=== PATIENT | female | born 1940 | race Caucasian/White ===

== ENCOUNTER 2019-04-28 19:25 | Emergency (ER) | payer MEDICARE, OTHER ==
[~2019-04-28] VITALS: Ht 160 cm; Wt 51.0 kg
[~2019-04-28 19:25] MED LIST: ALPR-624 PO; CHOL400C8 PO; CYAN50LO INJ; LEVO50TA8 PO; PANT-47 PO; PROBIOTICS PO; RIVA10TA PO; RYT225T PO
[2019-04-28 21:42] VITALS: BP 166/83
== END 2019-04-28 21:43 | disposition home or self-care (01) ==
LOC: ER 19:25
DX: S83.8X2A Sprain of other specified parts of left knee, initial encounter (principal); S00.03XA Contusion of scalp, initial encounter; S90.32XA Contusion of left foot, initial encounter; M25.462 Effusion, left knee; Z88.5 Allergy status to narcotic agent; Z88.6 Allergy status to analgesic agent; Z79.899 Other long term (current) drug therapy; W01.0XXA Fall on same level from slipping, tripping and stumbling without subsequent striking against object, initial encounter; Y93.89 Activity, other specified; Y92.89 Other specified places as the place of occurrence of the external cause; Y99.8 Other external cause status
CPT/HCPCS: 99284

== ENCOUNTER 2019-08-20 18:30 | Emergency (ER) | payer MEDICARE, OTHER ==
[~2019-08-20] VITALS: Ht 160 cm; Wt 52.0 kg
--- NOTE | 2019-08-20 18:55 | NUR ---
md khanna made aware of pt condition.
--- NOTE | 2019-08-20 19:07 | NUR ---
It was approved via the CNO that the family member can come back to bedside for this patient. Person given a mask and taken to the room. Evie the House Wrecker called González the CNO herself and summoned me.
[2019-08-20] MEDS ORDERED: proCHLORperazine 10 MG/2 ml inj IV ONE (19:20)
[2019-08-20] MEDS ORDERED: morphine 4 MG/ML inj SYRINge IV ONE (19:20)
[2019-08-20] MEDS ORDERED: morphine 2 MG/ML inj. syringe IV PRN (19:20)
[2019-08-20] MEDS ORDERED: OFLO5DRO3 EACHEYE (19:37)
[2019-08-20 20:10] LABS: BASOPHILS # (AUTO) 0.1 X10'3 (0-0.2); BASOPHILS % (AUTO) 1.2 % (0-1); EOSINOPHILS # (AUTO) 0.1 X10'3 (0-0.9); EOSINOPHILS % (AUTO) 2.3 % (0-6); HEMATOCRIT 33.1 % (35.0-45.0); LYMPHOCYTES # (AUTO) 1.3 X10'3 (1.1-4.8); LYMPHOCYTES % (AUTO) 27.5 % (21-51); MEAN CORPUSCULAR HEMOGLOBIN 30.7 PG (27.0-31.0); MEAN CORPUSCULAR HGB CONC 33.1 g/dL (33.0-36.5); MEAN CORPUSCULAR VOLUME 92.8 FL (78-98); MEAN PLATELET VOLUME 9.5 FL (7.4-10.4); MONOCYTES # (AUTO) 0.7 X10'3 (0-0.9); MONOCYTES % (AUTO) 13.9 % (2-12); NEUTROPHILS # (AUTO) 2.6 X10'3 (1.8-7.7); NEUTROPHILS % (AUTO) 55.1 % (42-75); PLATELET COUNT 212 X10'3 (140-440); RED BLOOD COUNT 3.57 X10'6 (4.20-5.60); RED CELL DISTRIBUTION WIDTH 14.9 % (11.5-14.5); WHITE BLOOD COUNT 4.8 X10'3 (4.5-11.0)
[2019-08-20 20:23] LABS: ALANINE AMINOTRANSFERASE 15 U/L (12-78); ALBUMIN 3.6 G/DL (3.4-5.0); ALBUMIN/GLOBULIN RATIO 1.1 (1.1-1.5); ALKALINE PHOSPHATASE 118 IU/L (46-116); ANION GAP 4 (8-16); ASPARTATE AMINO TRANSFERASE 22 U/L (10-37); BILIRUBIN,TOTAL 0.2 MG/DL (0.1-1.0); BLOOD UREA NITROGEN 20 MG/DL (7-18); BUN/CREATININE RATIO 17.1 (6.6-38.0); CALCIUM 8.3 MG/DL (8.5-10.1); CHLORIDE 102 MMOL/L (99-107); CREATININE 1.17 MG/DL (0.40-0.90); GLUCOSE 90 MG/DL (70-104); POTASSIUM 4.6 MMOL/L (3.5-5.1); SODIUM 136 MMOL/L (135-145); TOTAL CARBON DIOXIDE 30.4 MMOL/L (24-32); eGFR 45 ML/MIN
[2019-08-20] MEDS ORDERED: cloNIDine 0.1 mg tablet PO ONE (22:05)
[2019-08-20] MEDS ORDERED: gabapentin 100mg capsule PO ONE (22:40)
[2019-08-20] MEDS ORDERED: GABA-530 PO (22:46)
[2019-08-21 00:19] VITALS: BP 167/84
== END 2019-08-21 00:20 | disposition home or self-care (01) ==
LOC: ER 18:30
DX: R51 Headache (principal); I10 Essential (primary) hypertension; I48.91 Unspecified atrial fibrillation; Z86.73 Personal history of transient ischemic attack (TIA), and cerebral infarction without residual deficits; Z79.899 Other long term (current) drug therapy; Z88.8 Allergy status to other drugs, medicaments and biological substances; Z79.01 Long term (current) use of anticoagulants
CPT/HCPCS: 36415; 70450; 80053; 85025; 85610; 93005; 96374; 96375; 96376; 99285; J0780; J2270

== ENCOUNTER 2020-03-05 19:00 | Emergency (ER) | payer MEDICARE, OTHER ==
[~2020-03-05] VITALS: Ht 160 cm; Wt 48.2 kg
[~2020-03-05 19:00] MED LIST changes: -ALPR-624 PO; -CHOL400C8 PO; -CYAN50LO INJ; +GABA-530 PO; +OFLO5DRO3 EACHEYE; -PROBIOTICS PO
[2020-03-05] MEDS ORDERED: iohexol 300mg/ml 100ml inj. ONE (19:19)
[2020-03-05 19:55] LABS: BASOPHILS % (AUTO) 0.2 % (0-1); EOSINOPHILS % (AUTO) 0 % (0-6); HEMATOCRIT 33.3 % (35.0-45.0); HEMOGLOBIN 11.1 g/dl (12.0-16.0); LYMPHOCYTES # (AUTO) 0.7 X10'3 (1.1-4.8); LYMPHOCYTES % (AUTO) 7.1 % (21-51); MEAN CORPUSCULAR HEMOGLOBIN 30.6 PG (27.0-31.0); MEAN CORPUSCULAR HGB CONC 33.2 g/dL (33.0-36.5); MEAN CORPUSCULAR VOLUME 92.4 FL (78-98); MEAN PLATELET VOLUME 8.2 FL (7.4-10.4); MONOCYTES # (AUTO) 0.6 X10'3 (0-0.9); MONOCYTES % (AUTO) 6.4 % (2-12); NEUTROPHILS # (AUTO) 8.1 X10'3 (1.8-7.7); NEUTROPHILS % (AUTO) 86.3 % (42-75); PLATELET COUNT 287 X10'3 (140-440); RED BLOOD COUNT 3.61 X10'6 (4.20-5.60); RED CELL DISTRIBUTION WIDTH 15.7 % (11.5-14.5); WHITE BLOOD COUNT 9.4 X10'3 (4.5-11.0)
[2020-03-05 20:07] LABS: PARTIAL THROMBOPLASTIN TIME 25 SECONDS (22-32)
[2020-03-05 20:15] LABS: ALANINE AMINOTRANSFERASE 22 U/L (12-78); ALBUMIN 3.3 G/DL (3.4-5.0); ALKALINE PHOSPHATASE 90 IU/L (46-116); ANION GAP 6 (8-16); ASPARTATE AMINO TRANSFERASE 24 U/L (10-37); BILIRUBIN,TOTAL 0.4 MG/DL (0.1-1.0); BLOOD UREA NITROGEN 16 MG/DL (7-18); BUN/CREATININE RATIO 16.8 (6.6-38.0); CALCIUM 8.3 MG/DL (8.5-10.1); CHLORIDE 97 MMOL/L (99-107); CREATININE 0.95 MG/DL (0.40-0.90); GLUCOSE 102 MG/DL (70-104); LIPASE 125 U/L (73-393); POTASSIUM 4.1 MMOL/L (3.5-5.1); SODIUM 134 MMOL/L (135-145); TOTAL PROTEIN 6.6 G/DL (6.4-8.2); TROPONIN I < 0.04 NG/ML (0.0-0.05); eGFR 56 ML/MIN
[2020-03-05 21:24] VITALS: BP 185/94
== END 2020-03-05 21:28 | disposition home or self-care (01) ==
LOC: ER 19:01
DX: S20.212A Contusion of left front wall of thorax, initial encounter (principal); N18.9 Chronic kidney disease, unspecified; I48.91 Unspecified atrial fibrillation; E07.9 Disorder of thyroid, unspecified; Z86.73 Personal history of transient ischemic attack (TIA), and cerebral infarction without residual deficits; Z88.2 Allergy status to sulfonamides; Z88.8 Allergy status to other drugs, medicaments and biological substances; Z79.2 Long term (current) use of antibiotics; Z79.899 Other long term (current) drug therapy; W01.0XXA Fall on same level from slipping, tripping and stumbling without subsequent striking against object, initial encounter; Z91.81 History of falling; Y93.89 Activity, other specified; Y92.098 Other place in other non-institutional residence as the place of occurrence of the external cause; Y99.8 Other external cause status
CPT/HCPCS: 36415; 71260; 74177; 80053; 83690; 84484; 85025; 85610; 85730; 86885; 86900; 86901; 99285; Q9967; 93005

== ENCOUNTER 2020-04-02 23:28 | Emergency (ER) | payer MEDICARE, OTHER ==
[~2020-04-02] VITALS: Ht 160 cm; Wt 51.4 kg
[2020-04-02] MEDS ORDERED: hydrALAZINE 20mg/ml inj. IV ONE (23:35)
[2020-04-02 23:57] LABS: BASOPHILS % (AUTO) 0.3 % (0-1); EOSINOPHILS % (AUTO) 0.3 % (0-6); HEMATOCRIT 31.6 % (35.0-45.0); HEMOGLOBIN 10.7 g/dl (12.0-16.0); LYMPHOCYTES # (AUTO) 1.2 X10'3 (1.1-4.8); LYMPHOCYTES % (AUTO) 14.9 % (21-51); MEAN CORPUSCULAR HEMOGLOBIN 31.3 PG (27.0-31.0); MEAN CORPUSCULAR HGB CONC 33.8 g/dL (33.0-36.5); MEAN CORPUSCULAR VOLUME 92.6 FL (78-98); MONOCYTES # (AUTO) 0.7 X10'3 (0-0.9); MONOCYTES % (AUTO) 8.9 % (2-12); NEUTROPHILS % (AUTO) 75.6 % (42-75); PLATELET COUNT 269 X10'3 (140-440); RED BLOOD COUNT 3.41 X10'6 (4.20-5.60); RED CELL DISTRIBUTION WIDTH 14.9 % (11.5-14.5)
[2020-04-03 00:15] LABS: ALANINE AMINOTRANSFERASE 22 U/L (12-78); ALBUMIN 3.3 G/DL (3.4-5.0); ALKALINE PHOSPHATASE 89 IU/L (46-116); ANION GAP 5 (8-16); ASPARTATE AMINO TRANSFERASE 22 U/L (10-37); BILIRUBIN,TOTAL 0.3 MG/DL (0.1-1.0); BLOOD UREA NITROGEN 12 MG/DL (7-18); BUN/CREATININE RATIO 12.2 (6.6-38.0); CALCIUM 8.2 MG/DL (8.5-10.1); CHLORIDE 94 MMOL/L (99-107); CREATININE 0.98 MG/DL (0.40-0.90); GLUCOSE 111 MG/DL (70-104); POTASSIUM 3.7 MMOL/L (3.5-5.1); SODIUM 128 MMOL/L (135-145); TOTAL CARBON DIOXIDE 29.4 MMOL/L (24-32); TOTAL PROTEIN 6.5 G/DL (6.4-8.2); eGFR 54 ML/MIN
[2020-04-03 00:20] LABS: MAGNESIUM 1.8 MG/DL (1.5-2.4)
[2020-04-03] MEDS ORDERED: normal saline 1000ML IV soln IVB ONE (00:50)
[2020-04-03 01:58] VITALS: BP 169/90
== END 2020-04-03 02:00 | disposition home or self-care (01) ==
LOC: ER 23:29
DX: I16.0 Hypertensive urgency (principal); R42 Dizziness and giddiness; E87.1 Hypo-osmolality and hyponatremia; D50.0 Iron deficiency anemia secondary to blood loss (chronic); R11.0 Nausea; R51.9 Headache, unspecified; N18.9 Chronic kidney disease, unspecified; I48.91 Unspecified atrial fibrillation; Z86.73 Personal history of transient ischemic attack (TIA), and cerebral infarction without residual deficits; Z88.1 Allergy status to other antibiotic agents; Z88.8 Allergy status to other drugs, medicaments and biological substances; Z79.2 Long term (current) use of antibiotics; Z79.899 Other long term (current) drug therapy
CPT/HCPCS: 36415; 70450; 71045; 80053; 83735; 83880; 84484; 85025; 93005; 96374; 99285; J0360; J7030

== ENCOUNTER 2020-05-28 20:09 | Emergency (ER) | payer MEDICARE, OTHER ==
[~2020-05-28] VITALS: Ht 170.2 cm; Wt 56.4 kg
[2020-05-28] MEDS ORDERED: GENT5DRO RIGHT EAR (20:47)
[2020-05-28 21:22] VITALS: BP 143/72
== END 2020-05-28 21:24 | disposition home or self-care (01) ==
LOC: ER 20:10
DX: H60.501 Unspecified acute noninfective otitis externa, right ear (principal); I48.91 Unspecified atrial fibrillation; E07.9 Disorder of thyroid, unspecified; M79.7 Fibromyalgia; Z86.73 Personal history of transient ischemic attack (TIA), and cerebral infarction without residual deficits; Z87.442 Personal history of urinary calculi; Z91.018 Allergy to other foods; Z88.1 Allergy status to other antibiotic agents; Z88.8 Allergy status to other drugs, medicaments and biological substances; Z79.899 Other long term (current) drug therapy
CPT/HCPCS: 99283

== ENCOUNTER 2021-05-24 07:55 | Day surgery (SDC) | payer MEDICARE, OTHER ==
[2021-05-24] VITALS (12 sets, daily range): BP systolic 162–204; BP diastolic 70–110
[~2021-05-24 07:55] MED LIST changes: +GENT5DRO RIGHT EAR
[2021-05-24] MEDS ORDERED: LIDOcaine Viscous 15ml cup ONE (08:28)
[2021-05-24] MEDS ORDERED: fentaNYL/PF 50MCG/1 ML 2ML syringe ONE (08:28)
[2021-05-24] MEDS ORDERED: MIDAZolam 1 MG/ML 5ML VIAL ONE (08:28)
[2021-05-24] MEDS ORDERED: ENZY1CAP5 (09:09)
[2021-05-24] MEDS ORDERED: LACT1CAP73 PO (09:09)
[2021-05-24] MEDS ORDERED: vit d3 PO (09:09)
[2021-05-24] MEDS ORDERED: naloxone 0.4 mg/ml inj ONE (14:14)
== END 2021-05-24 11:35 | disposition home or self-care (01) ==
LOC: GI LAB 07:55
PROVIDERS: ATTEND Internal Medicine Gastroenterology
DX: R13.14 Dysphagia, pharyngoesophageal phase (principal); K22.2 Esophageal obstruction; I48.91 Unspecified atrial fibrillation; Z79.01 Long term (current) use of anticoagulants
CPT/HCPCS: 43248; C1769; G0500; J0585; J2250; J2310; J3010; J7040; Z7512; 99152; A4620

== ENCOUNTER 2022-02-21 20:03 | Emergency (ER) | payer MEDICARE, OTHER ==
[~2022-02-21] VITALS: Ht 160 cm; Wt 51.8 kg
[~2022-02-21 20:03] MED LIST changes: -GABA-530 PO; -GENT5DRO RIGHT EAR; -OFLO5DRO3 EACHEYE
[2022-02-21 20:07] VITALS: BP 184/84
== END 2022-02-21 23:45 | disposition home or self-care (01) ==
LOC: ER 20:04
DX: S09.90XA Unspecified injury of head, initial encounter (principal); S00.03XA Contusion of scalp, initial encounter; I48.91 Unspecified atrial fibrillation; Z86.73 Personal history of transient ischemic attack (TIA), and cerebral infarction without residual deficits; Z87.440 Personal history of urinary (tract) infections; Z85.9 Personal history of malignant neoplasm, unspecified; Z88.8 Allergy status to other drugs, medicaments and biological substances; Z88.1 Allergy status to other antibiotic agents; Z79.899 Other long term (current) drug therapy; W19.XXXA Unspecified fall, initial encounter; Y93.89 Activity, other specified; Y92.89 Other specified places as the place of occurrence of the external cause; Y99.8 Other external cause status
CPT/HCPCS: 70450; 99284

== ENCOUNTER 2022-03-21 20:17 | Emergency (ER) | payer MEDICARE, OTHER ==
[~2022-03-21] VITALS: Ht 160 cm; Wt 52.8 kg
[2022-03-21 20:20] VITALS: BP 204/104
== END 2022-03-22 00:36 | disposition home or self-care (01) ==
LOC: ER 20:17
DX: S60.221A Contusion of right hand, initial encounter (principal); R22.31 Localized swelling, mass and lump, right upper limb; Z88.1 Allergy status to other antibiotic agents; Z88.5 Allergy status to narcotic agent; Z88.8 Allergy status to other drugs, medicaments and biological substances; Z91.09 Other allergy status, other than to drugs and biological substances; X58.XXXA Exposure to other specified factors, initial encounter; Y93.89 Activity, other specified; Y92.89 Other specified places as the place of occurrence of the external cause; Y99.8 Other external cause status
CPT/HCPCS: 29125; 73130; 99283

== ENCOUNTER 2022-04-16 17:54 | Inpatient (IN) | payer MEDICARE, OTHER ==
[~2022-04-16] VITALS: Ht 160 cm; Wt 56.4 kg
[2022-04-16] MEDS ORDERED: aspirin 81mg tab.chew PO ONE (18:40)
[2022-04-16 19:06] LABS: BASOPHILS # (AUTO) 0.1 X10'3 (0-0.2); BASOPHILS % (AUTO) 1.5 % (0-1); EOSINOPHILS # (AUTO) 0.1 X10'3 (0-0.9); EOSINOPHILS % (AUTO) 0.8 % (0-6); HEMOGLOBIN 10.6 g/dl (12.0-16.0); LYMPHOCYTES # (AUTO) 1.2 X10'3 (1.1-4.8); LYMPHOCYTES % (AUTO) 13.4 % (21-51); MEAN CORPUSCULAR HEMOGLOBIN 33.6 PG (27.0-31.0); MEAN CORPUSCULAR HGB CONC 33.1 g/dL (33.0-36.5); MEAN CORPUSCULAR VOLUME 101.4 FL (78-98); MEAN PLATELET VOLUME 7.9 FL (7.4-10.4); MONOCYTES # (AUTO) 0.9 X10'3 (0-0.9); MONOCYTES % (AUTO) 9.6 % (2-12); NEUTROPHILS # (AUTO) 6.7 X10'3 (1.8-7.7); NEUTROPHILS % (AUTO) 74.7 % (42-75); PLATELET COUNT 348 X10'3 (140-440); RED BLOOD COUNT 3.15 X10'6 (4.20-5.60); RED CELL DISTRIBUTION WIDTH 13.8 % (11.5-14.5)
[2022-04-16 19:21] LABS: ALANINE AMINOTRANSFERASE 29 U/L (12-78); ALBUMIN 2.6 G/DL (3.4-5.0); ALBUMIN/GLOBULIN RATIO 0.8 (1.1-1.5); ALKALINE PHOSPHATASE 93 IU/L (46-116); ANION GAP 7 (8-16); ASPARTATE AMINO TRANSFERASE 24 U/L (10-37); BILIRUBIN,TOTAL 0.4 MG/DL (0.1-1.0); BLOOD UREA NITROGEN 16 MG/DL (7-18); BUN/CREATININE RATIO 15.2 (6.6-38.0); CALCIUM 8.4 MG/DL (8.5-10.1); CHLORIDE 98 MMOL/L (99-107); CREATININE 1.05 MG/DL (0.40-0.90); GLUCOSE 109 MG/DL (70-104); POTASSIUM 3.8 MMOL/L (3.5-5.1); SODIUM 136 MMOL/L (135-145); TOTAL CARBON DIOXIDE 31.5 MMOL/L (24-32); eGFR 50 ML/MIN
[2022-04-16] MEDS ORDERED: RIVA10TA PO (20:16)
[2022-04-16] MEDS ORDERED: PANT-47 PO (20:16)
[2022-04-16] MEDS ORDERED: SYN0.088T PO (20:16)
[2022-04-16] MEDS ORDERED: PROP225C9 PO (20:16)
[2022-04-16] MEDS ORDERED: temazepam 15mg capsule PO PRN (21:00)
[2022-04-16] MEDS ORDERED: iohexol 350MG/ML 100ml bottle IV ONE (21:11)
[2022-04-16] MEDS ORDERED: potassium Cl 20 mEq SR tablet PO PRN ×2 (22:10)
[2022-04-16] MEDS ORDERED: magnesium Cl slow-release 64mg tablet PO PRN (22:10)
[2022-04-16] MEDS ORDERED: ondansetron/PF 4mg/2ml inj IV PRN (22:10)
[2022-04-16] MEDS ORDERED: potassium Cl 40MEQ/1/2NS 520ml 520 ML IV PRN (22:10)
[2022-04-16] MEDS ORDERED: acetaminophen 325mg tablet PO PRN ×2 (22:10)
[2022-04-16] MEDS ORDERED: magnesium 4gm in 100ml NS 100 ML IV PRN (22:10)
[2022-04-16] MEDS ORDERED: regadenoson 0.4mg/5ml syringe IV PRN (22:15)
[2022-04-16] MEDS ORDERED: metoprolol tartrate 1mg/ml inj IV PRN (22:15)
[2022-04-16] MEDS ORDERED: aminophylline 250mg/10ml inj. IV PRN (22:15)
[2022-04-16] MEDS ORDERED: nitroGLYCERIN 0.4mg SUBLingual tab SL PRN (22:15)
[2022-04-16] MEDS ORDERED: SPIR25TA5 PO (22:49)
[2022-04-17] VITALS (10 sets, daily range): BP systolic 129–192; BP diastolic 58–87
[2022-04-17] MEDS ORDERED: RIVA20TA PO (00:32)
[2022-04-17 04:19] LABS: BASOPHILS % (AUTO) 0.6 % (0-1); EOSINOPHILS # (AUTO) 0.1 X10'3 (0-0.9); EOSINOPHILS % (AUTO) 1.1 % (0-6); HEMATOCRIT 32.7 % (35.0-45.0); LYMPHOCYTES # (AUTO) 1.4 X10'3 (1.1-4.8); LYMPHOCYTES % (AUTO) 20.4 % (21-51); MEAN CORPUSCULAR HEMOGLOBIN 34.2 PG (27.0-31.0); MEAN CORPUSCULAR HGB CONC 33.5 g/dL (33.0-36.5); MEAN CORPUSCULAR VOLUME 102.1 FL (78-98); MEAN PLATELET VOLUME 7.8 FL (7.4-10.4); MONOCYTES # (AUTO) 0.8 X10'3 (0-0.9); MONOCYTES % (AUTO) 11.1 % (2-12); NEUTROPHILS # (AUTO) 4.5 X10'3 (1.8-7.7); NEUTROPHILS % (AUTO) 66.8 % (42-75); PLATELET COUNT 327 X10'3 (140-440); RED BLOOD COUNT 3.21 X10'6 (4.20-5.60); RED CELL DISTRIBUTION WIDTH 13.8 % (11.5-14.5); WHITE BLOOD COUNT 6.7 X10'3 (4.5-11.0)
[2022-04-17 04:35] LABS: ALANINE AMINOTRANSFERASE 23 U/L (12-78); ALBUMIN 2.6 G/DL (3.4-5.0); ALBUMIN/GLOBULIN RATIO 0.7 (1.1-1.5); ALKALINE PHOSPHATASE 96 IU/L (46-116); ANION GAP 6 (8-16); ASPARTATE AMINO TRANSFERASE 26 U/L (10-37); BILIRUBIN,TOTAL 0.4 MG/DL (0.1-1.0); BLOOD UREA NITROGEN 13 MG/DL (7-18); BUN/CREATININE RATIO 16.3 (6.6-38.0); CALCIUM 8.6 MG/DL (8.5-10.1); CHLORIDE 100 MMOL/L (99-107); GLUCOSE 103 MG/DL (70-104); POTASSIUM 3.9 MMOL/L (3.5-5.1); SODIUM 137 MMOL/L (135-145); TOTAL CARBON DIOXIDE 31.1 MMOL/L (24-32); TOTAL PROTEIN 6.1 G/DL (6.4-8.2); eGFR 69 ML/MIN
[2022-04-17] MEDS ORDERED: FURO20TA4 PO (06:58)
--- NOTE | 2022-04-17 07:04 | NUR ---
Patient was instructed that she is NPO for stress test today. Pt verbalized understanding of instruction given to her.
--- NOTE | 2022-04-17 07:11 | NUR ---
Paged Dr. Gardner: EMIGDIO Corbin RN RE: Adrienne Doe, Pt has med recon reviewed this am. She is usually on Xarelto at night. She has heparin SQ due this am, do you want us to give it this am and resume Xareto she takes at home?
--- NOTE | 2022-04-17 07:50 | NUR ---
Pt was hesitant to receive IV Rocephin this am. She reported that she has so many allergies and that she is concern about any medication to receive. I asked her if she ever had Ceftriaxone (Rocephin) and she states "I don't know if I ever had it!" Holding Rocephin IV for now until she allows me to administer it
[2022-04-17] MEDS ORDERED: CefTRIAXone 2gm/D5W 50ml BAG 50 ML IV SCH (08:00)
[2022-04-17] MEDS ORDERED: heparin, porcine 5000 units/ml vial SQ SCH (08:00)
--- NOTE | 2022-04-17 08:10 | NUR ---
SPOKE WITH DR. SILVA REPORTING PT REFUSING ABX AND REQUESTING TO SPEAK WITH HOSPITALIST. RECEIVED VO TO START PT ON HOME MED XARELTO 20MG HS, LAST DOSE TAKEN WAS 04/15/22 AND PT IS TO START NOW PER DR. SILVA. VO TO DC HEPARIN SQ ORDERS
[2022-04-17] MEDS ORDERED: pantoprazole 40mg Tablet.DR PO SCH (08:48)
--- NOTE | 2022-04-17 09:13 | NUR ---
CALLED RX FOR XARELTO, PT WILL NOT RECEIVE MED TILL EVENING MEAL PHARMACIST REPORTS MANUFACTURE RECOMMENDATION. CALLED HOSPITALIST DR. SILVA, AWAITING RETURN CALL TO REPORT.
--- NOTE | 2022-04-17 09:24 | NUR ---
Pt just left her room accompanied by claus Mccartney en route to Stress Test
[2022-04-17 10:29] LABS: CHOL/HDL RATIO 2.4 (0.00-4.99); CHOLESTEROL 200 MG/DL (0-200); HDL CHOLESTEROL 83 MG/DL (35-60); LDL CHOLESTEROL 110 MG/DL (50-100); TRIGLYCERIDES 42 MG/DL (20-135)
[2022-04-17 10:52] LABS: HEMOGLOBIN A1C 5.6 % (4.5-6.2)
[2022-04-17] MEDS ORDERED: ALBU6.7H14 INH ×2 (12:30)
[2022-04-17] MEDS ORDERED: PROPAFENONE HCL 225 MG PO SCH (13:00)
[2022-04-17] MEDS ORDERED: rivaroxaban 20mg tablet PO SCH (18:00)
[2022-04-18] MEDS ORDERED: levoTHYROXINE 25mcg tablet PO SCH (07:30)
[2022-04-25] MEDS ORDERED: piperacillin/tazo 4.5gm/100ml 100 ML IV SCH (16:00)
== END 2022-04-17 15:00 | disposition home or self-care (01) | DRG 392 ==
LOC: ER 17:54 → ED HOLD 22:13
PROVIDERS: ADMIT Internal Medicine; ATTEND Family Medicine
PROC: B32T1ZZ Computerized Tomography (CT Scan) of Left Pulmonary Artery using Low Osmolar Contrast (ICD-10-PCS; 2022-04-16)
PROC: B3201ZZ Computerized Tomography (CT Scan) of Thoracic Aorta using Low Osmolar Contrast (ICD-10-PCS; 2022-04-16)
PROC: B32S1ZZ Computerized Tomography (CT Scan) of Right Pulmonary Artery using Low Osmolar Contrast (ICD-10-PCS; 2022-04-16)
PROC: 4A02XM4 Measurement of Cardiac Total Activity, External Approach (ICD-10-PCS; principal; 2022-04-17)
PROC: 3E033HZ Introduction of Radioactive Substance into Peripheral Vein, Percutaneous Approach (ICD-10-PCS; 2022-04-17)
DX: K21.9 Gastro-esophageal reflux disease without esophagitis (principal); E03.9 Hypothyroidism, unspecified; I27.20 Pulmonary hypertension, unspecified; Z20.822 Contact with and (suspected) exposure to COVID-19; I48.0 Paroxysmal atrial fibrillation; I10 Essential (primary) hypertension; D33.3 Benign neoplasm of cranial nerves; R91.8 Other nonspecific abnormal finding of lung field; M79.7 Fibromyalgia; Z79.01 Long term (current) use of anticoagulants; Z79.52 Long term (current) use of systemic steroids; Z86.011 Personal history of benign neoplasm of the brain; Z86.73 Personal history of transient ischemic attack (TIA), and cerebral infarction without residual deficits; Z92.3 Personal history of irradiation; Z88.8 Allergy status to other drugs, medicaments and biological substances; Z79.890 Hormone replacement therapy
CPT/HCPCS: 36415; 71045; 71275; 78452; 80053; 80061; 83036; 83605; 83735; 83880; 84145; 84443; 84484; 85025; 87040; 87081; 87502; 87503; 87635; 93005; 93017; 93306; 99285; A9500; G0378; J2785; J3490; Q9967

== ENCOUNTER 2022-04-25 06:24 | Inpatient (IN) | payer MEDICARE, OTHER ==
[~2022-04-25] VITALS: Ht 160 cm; Wt 56.0 kg
[~2022-04-25 06:24] MED LIST changes: +ALBU6.7H14 INH; +FURO20TA4 PO; +PROP225C9 PO; -RIVA10TA PO; +RIVA20TA PO; -RYT225T PO
[2022-04-25 06:59] LABS: BASOPHILS # (AUTO) 0.1 X10'3 (0-0.2); BASOPHILS % (AUTO) 0.8 % (0-1); EOSINOPHILS % (AUTO) 0.5 % (0-6); HEMATOCRIT 31.9 % (35.0-45.0); HEMOGLOBIN 10.7 g/dl (12.0-16.0); LYMPHOCYTES # (AUTO) 1.1 X10'3 (1.1-4.8); LYMPHOCYTES % (AUTO) 15.1 % (21-51); MEAN CORPUSCULAR HEMOGLOBIN 33.6 PG (27.0-31.0); MEAN CORPUSCULAR HGB CONC 33.6 g/dL (33.0-36.5); MEAN CORPUSCULAR VOLUME 100.1 FL (78-98); MONOCYTES # (AUTO) 0.8 X10'3 (0-0.9); MONOCYTES % (AUTO) 10.4 % (2-12); NEUTROPHILS # (AUTO) 5.5 X10'3 (1.8-7.7); NEUTROPHILS % (AUTO) 73.2 % (42-75); PLATELET COUNT 367 X10'3 (140-440); RED BLOOD COUNT 3.19 X10'6 (4.20-5.60); RED CELL DISTRIBUTION WIDTH 14.1 % (11.5-14.5); WHITE BLOOD COUNT 7.5 X10'3 (4.5-11.0)
[2022-04-25] MEDS ORDERED: ondansetron/PF 4mg/2ml inj IV ONE (07:05)
[2022-04-25 07:38] LABS: CLARITY,URINE CLEAR (Clear); COLOR,URINE STRAW (Yellow); GLUCOSE, URINE NEGATIVE (Neg); KETONES,URINE NEGATIVE (Neg); LEUKOCYTE ESTERASE ,URINE NEGATIVE (Neg); NITRITES, URINE POSITIVE (Neg); OCCULT BLOOD,URINE NEGATIVE (Neg); PROTEIN,URINE NEGATIVE (Neg); UROBILINOGEN,URINE 0.2 E.U/dL (0.2-1.0)
[2022-04-25 07:43] LABS: UA COLLECTION TYPE STRAIGHT CATH
[2022-04-25 07:50] LABS: BACTERIA,URINE 4+ /HPF (Neg); MUCUS STRANDS NONE SEEN /LPF (Neg); SQUAMOUS EPITHELIAL CELL,UR FEW /LPF (FEW)
[2022-04-25 07:51] LABS: RBC,URINE 0-2 /HPF (0-2); RENAL CELLS, URINE FEW /HPF; WBC,URINE 0-4 /HPF (0-4)
[2022-04-25 08:36] LABS: ALANINE AMINOTRANSFERASE 21 U/L (12-78); ALBUMIN 2.9 G/DL (3.4-5.0); ALBUMIN/GLOBULIN RATIO 0.8 (1.1-1.5); ALKALINE PHOSPHATASE 89 IU/L (46-116); ANION GAP 9 (8-16); ASPARTATE AMINO TRANSFERASE 23 U/L (10-37); BILIRUBIN,TOTAL 0.2 MG/DL (0.1-1.0); BLOOD UREA NITROGEN 18 MG/DL (7-18); CALCIUM 8.4 MG/DL (8.5-10.1); CHLORIDE 99 MMOL/L (99-107); CREATININE 1.06 MG/DL (0.40-0.90); GLUCOSE 109 MG/DL (70-104); POTASSIUM 3.4 MMOL/L (3.5-5.1); SODIUM 138 MMOL/L (135-145); TOTAL CARBON DIOXIDE 29.6 MMOL/L (24-32); TOTAL PROTEIN 6.6 G/DL (6.4-8.2); eGFR 50 ML/MIN
[2022-04-25 08:43] LABS: LIPASE 221 U/L (73-393); MAGNESIUM 1.6 MG/DL (1.5-2.4)
[2022-04-25] MEDS ORDERED: acetaminophen 325mg tablet PO STA (10:06)
[2022-04-25] MEDS ORDERED: CefTRIAXone 2gm/D5W 50ml BAG 50 ML IV ONE (10:10)
[2022-04-25] MEDS ORDERED: normal saline 1000ML IV soln IV ONE (10:10)
[2022-04-25] MEDS ORDERED: ALPR1TAB2 PO (10:45)
[2022-04-25] MEDS ORDERED: DEXA1TAB PO (10:45)
[2022-04-25] MEDS ORDERED: FURO-150 PO (10:46)
--- NOTE | 2022-04-25 10:47 | NUR ---
DR. ROTHMAN AT BEDSIDE.
[2022-04-25] MEDS ORDERED: potassium Cl 20 mEq SR tablet PO PRN ×2 (12:40)
[2022-04-25] MEDS ORDERED: magnesium 4gm in 100ml NS 100 ML IV PRN (12:40)
[2022-04-25] MEDS ORDERED: acetaminophen 325mg tablet PO PRN ×2 (12:40)
[2022-04-25] MEDS ORDERED: ondansetron/PF 4mg/2ml inj IV PRN (12:40)
[2022-04-25] MEDS ORDERED: albuterol 2.5 MG/3 ML nebule NEB PRN (12:40)
[2022-04-25] MEDS ORDERED: potassium Cl 40MEQ/1/2NS 520ml 520 ML IV PRN (12:40)
[2022-04-25] MEDS ORDERED: docusate sod 100mg capsule PO PRN (12:40)
[2022-04-25] MEDS ORDERED: ipratropium/albuterol 3ml nebule NEB PRN (12:40)
[2022-04-25] MEDS ORDERED: PROPAFENONE HCL 225 MG PO SCH ×2 (13:00→13:41)
[2022-04-25] MEDS: potassium Cl 20mEq in NS 1,000 ML IV SCH ×2 (13:50→22:40)
[2022-04-25] MEDS ORDERED: SPIR25TA5 PO (14:44)
[2022-04-25] MEDS ORDERED: ALBU17AE26 PO (14:45)
[2022-04-25] MEDS ORDERED: piperacillin/tazo 4.5gm/100ml 100 ML IV SCH (16:00)
[2022-04-25] MEDS: piperacillin/tazo 4.5gm/100ml 100 ML IV SCH (16:43)
[2022-04-25] MEDS: rivaroxaban 20mg tablet PO SCH (18:00)
--- NOTE | 2022-04-25 18:15 | NUR ---
Patient in room [facility]. I have received report from MEME Cotton and had the opportunity to ask questions and assume patient care. Pt sitting in bed iv infusing, no complaints, pt brought up from er at 1800. Addendum: 04/25/22 at 1946 by Pascual Cruz RN Amended: Links added.
[2022-04-25] MEDS: pantoprazole 40mg Tablet.DR PO SCH (20:00)
[2022-04-25] MEDS: K and/or MAG REPLACEMENT MC SCH (20:00)
[2022-04-25] MEDS ORDERED: furosemide 20MG tablet PO SCH (20:00)
[2022-04-25] MEDS: spironolactone 25 MG tablet PO SCH ×2 (20:00→21:58)
[2022-04-25] MEDS ORDERED: ALPRAZolam 0.5mg tablet PO SCH (21:00)
--- NOTE | 2022-04-25 21:30 | NUR ---
Pt very anxious, declines xanax at this time. wants to wait until around 2300. Very Talkative, iv site leaking and ressing being changed, pt pulled arm away and iv came out. pt apologizing, states to pt it was okay we can start6 a new one. Addendum: 04/25/22 at 2145 by Pascual Cruz RN Amended: Links added.
[2022-04-25 21:56] VITALS: BP 120/54
--- NOTE | 2022-04-25 22:08 | NUR ---
Pt nancy took one covid vaccine, states had reaction and refuses to have another vaccine. Addendum: 04/25/22 at 2209 by Pascual Cruz RN Amended: Links added.
[2022-04-26] MEDS: piperacillin/tazo 4.5gm/100ml 100 ML IV SCH ×3 (00:57→16:00)
[2022-04-26] MEDS ORDERED: PROPAFENONE HCL 225 MG PO ONE (01:15)
[2022-04-26] MEDS ORDERED: BACI1PAC7 TP (02:38)
[2022-04-26 04:48] LABS: BASOPHILS # (AUTO) 0.1 X10'3 (0-0.2); BASOPHILS % (AUTO) 0.7 % (0-1); EOSINOPHILS # (AUTO) 0.1 X10'3 (0-0.9); EOSINOPHILS % (AUTO) 0.6 % (0-6); HEMATOCRIT 30.1 % (35.0-45.0); LYMPHOCYTES # (AUTO) 1.4 X10'3 (1.1-4.8); LYMPHOCYTES % (AUTO) 15.1 % (21-51); MEAN CORPUSCULAR HEMOGLOBIN 33.6 PG (27.0-31.0); MEAN CORPUSCULAR HGB CONC 33.3 g/dL (33.0-36.5); MEAN PLATELET VOLUME 8.6 FL (7.4-10.4); MONOCYTES # (AUTO) 1.2 X10'3 (0-0.9); MONOCYTES % (AUTO) 12.8 % (2-12); NEUTROPHILS # (AUTO) 6.5 X10'3 (1.8-7.7); NEUTROPHILS % (AUTO) 70.8 % (42-75); PLATELET COUNT 285 X10'3 (140-440); RED BLOOD COUNT 2.99 X10'6 (4.20-5.60); RED CELL DISTRIBUTION WIDTH 14.3 % (11.5-14.5); WHITE BLOOD COUNT 9.2 X10'3 (4.5-11.0)
[2022-04-26 05:09] LABS: ALANINE AMINOTRANSFERASE 16 U/L (12-78); ALBUMIN 2.3 G/DL (3.4-5.0); ALBUMIN/GLOBULIN RATIO 0.7 (1.1-1.5); ALKALINE PHOSPHATASE 83 IU/L (46-116); ANION GAP 4 (8-16); ASPARTATE AMINO TRANSFERASE 22 U/L (10-37); BILIRUBIN,TOTAL 0.4 MG/DL (0.1-1.0); BLOOD UREA NITROGEN 12 MG/DL (7-18); BUN/CREATININE RATIO 13.2 (6.6-38.0); CALCIUM 8.1 MG/DL (8.5-10.1); CHLORIDE 102 MMOL/L (99-107); CREATININE 0.91 MG/DL (0.40-0.90); GLUCOSE 96 MG/DL (70-104); MAGNESIUM 1.7 MG/DL (1.5-2.4); POTASSIUM 3.5 MMOL/L (3.5-5.1); SODIUM 135 MMOL/L (135-145); TOTAL CARBON DIOXIDE 29.5 MMOL/L (24-32); TOTAL PROTEIN 5.8 G/DL (6.4-8.2); eGFR 59 ML/MIN
[2022-04-26] MEDS: potassium Cl 20mEq in NS 1,000 ML IV SCH (05:41)
[2022-04-26 06:00] VITALS: BP 145/86
--- NOTE | 2022-04-26 06:38 | NUR ---
Problems reprioritized. Patient report given, questions answered & plan of care reviewed with MEME Mckenzie. Addendum: 04/26/22 at 0639 by Pascual Cruz RN Amended: Links added.
--- NOTE | 2022-04-26 06:46 | NUR ---
Patient in room [facility]. I have received report from Katie VALENTINE and had the opportunity to ask questions and assume patient care.
[2022-04-26] MEDS: pantoprazole 40mg Tablet.DR PO SCH (07:57)
[2022-04-26] MEDS ORDERED: levoTHYROXINE 25mcg tablet PO SCH (08:00)
[2022-04-26] MEDS: K and/or MAG REPLACEMENT MC SCH (08:00)
[2022-04-26] MEDS ORDERED: dexamethasone 1mg tablet PO SCH (08:00)
[2022-04-26 10:00] VITALS: BP 103/48
[2022-04-26] MEDS: PROPAFENONE HCL 225 MG PO SCH ×2 (10:08→17:00)
--- NOTE | 2022-04-26 13:07 | NUR ---
O2 Sat at rest on room air:_86__% If below 89%: Recovery O2 Sat at rest on _2__LPM:__96_%:___% via NC (mask/nasal cannula, etc..) No further documentation is necessary. If O2 Sat did not drop below 89% on room air,ambulate patient on room air. O2 Sat while ambulating on room air:___% Recovery O2 Sat while ambulating on ___LPM:___% No further documentation is necessary. If patient does not drop below 89% while ambulating, he/she does not qualify for home O2.
[2022-04-26] MEDS ORDERED: AMOX-580 PO (13:19)
[2022-04-26] MEDS ORDERED: amox tr/potassium clavulanate 875/125mg TAB PO ONE (17:15)
[2022-04-26] MEDS: rivaroxaban 20mg tablet PO SCH (17:36)
--- NOTE | 2022-04-26 18:31 | NUR ---
PT DC TO HOME WITH GRANDSON. PT IS A & OX4 AND IN NO APPARENT DISTRESS. PT VERBALIZES UNDERSTANDING OF ALL DC ORDERS AND ASKED ALL QUESTIONS. PT'S IV REMOVED INTACT. PT WANTING TO WAIT UNTIL FAMILY MEMBER WAS READY TO GET HER, DC ORDERS SINCE EARLY BUT SHE KEPT EXTENDING HER STAY. RIDE ISSUES. PT REFUSED HER MEDICATIONS DUE AT 1600 AND 1730. SHE DECIDED TO TAKE THEM AT HOME. HOME MEDS GIVEN TO HER FROM PHARMACY. PT HAPPY TO GO HOME.
[2022-04-28] MEDS ORDERED: BACI3.5O5 EACHEYE (02:42)
[2022-04-30] MEDS ORDERED: LEVO-65 PO (16:57)
[2022-04-30] MEDS ORDERED: CLIN-97 PO (16:57)
== END 2022-04-26 18:21 | disposition home or self-care (01) | DRG 193 ==
LOC: ER 06:25 → ED HOLD 12:51 → SUR 3N 18:00
PROVIDERS: ADMIT Family Medicine; ATTEND Family Medicine
DX: J18.9 Pneumonia, unspecified organism (principal); J96.00 Acute respiratory failure, unspecified whether with hypoxia or hypercapnia; N17.0 Acute kidney failure with tubular necrosis; I48.20 Chronic atrial fibrillation, unspecified; N39.0 Urinary tract infection, site not specified; Z20.822 Contact with and (suspected) exposure to COVID-19; D33.3 Benign neoplasm of cranial nerves; D53.9 Nutritional anemia, unspecified; F17.200 Nicotine dependence, unspecified, uncomplicated; E03.9 Hypothyroidism, unspecified; E86.0 Dehydration; E87.6 Hypokalemia; K21.9 Gastro-esophageal reflux disease without esophagitis; M79.7 Fibromyalgia; Z79.01 Long term (current) use of anticoagulants; Z80.51 Family history of malignant neoplasm of kidney; Z82.49 Family history of ischemic heart disease and other diseases of the circulatory system; Z86.011 Personal history of benign neoplasm of the brain; Z86.73 Personal history of transient ischemic attack (TIA), and cerebral infarction without residual deficits; Z88.1 Allergy status to other antibiotic agents; Z92.3 Personal history of irradiation; Z88.8 Allergy status to other drugs, medicaments and biological substances; Z79.899 Other long term (current) drug therapy
CPT/HCPCS: 36415; 71045; 80053; 81001; 83605; 83690; 83735; 83880; 84145; 84484; 85025; 87040; 87077; 87088; 87186; 87811; 93005; 94760; 96365; 96375; 97116; 97161; 97530; 99285; A4353; A4615; A6258; G0378; J0696; J2405; J2543; J3480; J7030; J7040; J8540

== ENCOUNTER 2022-05-24 16:21 | Emergency (ER) | payer MEDICARE, OTHER ==
[~2022-05-24] VITALS: Ht 160 cm; Wt 53.8 kg
[~2022-05-24 16:21] MED LIST changes: +ALBU17AE26 PO; -ALBU6.7H14 INH; +ALPR1TAB2 PO; +BACI3.5O5 EACHEYE; +CLIN-97 PO; +DEXA1TAB PO; +FURO-150 PO; -FURO20TA4 PO; +SPIR25TA5 PO
--- NOTE | 2022-05-24 17:00 | NUR ---
pt talking with registration
[2022-05-24] MEDS ORDERED: LORazepam 0.5 MG tablet PO STA (19:51)
[2022-05-24 22:00] VITALS: BP 160/80
[2022-05-24] MEDS ORDERED: LORA-268 PO (22:27)
== END 2022-05-25 00:28 | disposition home or self-care (01) ==
LOC: ER 16:21
DX: S82.292A Other fracture of shaft of left tibia, initial encounter for closed fracture (principal); R06.02 Shortness of breath; R10.13 Epigastric pain; M79.7 Fibromyalgia; I48.91 Unspecified atrial fibrillation; Z86.73 Personal history of transient ischemic attack (TIA), and cerebral infarction without residual deficits; Z88.1 Allergy status to other antibiotic agents; Z88.8 Allergy status to other drugs, medicaments and biological substances; Z88.5 Allergy status to narcotic agent; Z91.018 Allergy to other foods; Z79.899 Other long term (current) drug therapy; X58.XXXA Exposure to other specified factors, initial encounter; Y93.89 Activity, other specified; Y92.89 Other specified places as the place of occurrence of the external cause; Y99.8 Other external cause status
CPT/HCPCS: 29515; 71045; 73590; 93005; 99285

== ENCOUNTER 2023-02-20 21:01 | Emergency (ER) | payer MEDICARE, OTHER ==
[~2023-02-20] VITALS: Ht 160 cm; Wt 54.5 kg
[~2023-02-20 21:01] MED LIST changes: -ALBU17AE26 PO; -BACI3.5O5 EACHEYE; -CLIN-97 PO; -DEXA1TAB PO; +MECL-226 PO; +METO-395 PO; -PROP225C9 PO; -SPIR25TA5 PO
[2023-02-20] MEDS ORDERED: meclizine 12.5mg tablet PO ONE (23:15)
[2023-02-20 23:52] LABS: BILIRUBIN,URINE NEGATIVE (Neg); CLARITY,URINE CLEAR (Clear); COLOR,URINE STRAW (Yellow); GLUCOSE, URINE NEGATIVE (Neg); KETONES,URINE NEGATIVE (Neg); LEUKOCYTE ESTERASE ,URINE NEGATIVE (Neg); NITRITES, URINE NEGATIVE (Neg); OCCULT BLOOD,URINE TRACE-INTACT (Neg); PROTEIN,URINE NEGATIVE (Neg); UROBILINOGEN,URINE 0.2 E.U/dL (0.2-1.0)
[2023-02-20 23:53] LABS: UA COLLECTION TYPE CLN CATCH MIDSTREAM
[2023-02-20 23:59] LABS: BASOPHILS # (AUTO) 0.1 X10'3 (0-0.2); BASOPHILS % (AUTO) 1.2 % (0-1); EOSINOPHILS # (AUTO) 0.1 X10'3 (0-0.9); EOSINOPHILS % (AUTO) 0.8 % (0-6); HEMATOCRIT 30.6 % (35.0-45.0); HEMOGLOBIN 10.3 g/dl (12.0-16.0); LYMPHOCYTES # (AUTO) 1.4 X10'3 (1.1-4.8); LYMPHOCYTES % (AUTO) 18.1 % (21-51); MEAN CORPUSCULAR HEMOGLOBIN 30.2 PG (27.0-31.0); MEAN CORPUSCULAR HGB CONC 33.6 g/dL (33.0-36.5); MEAN PLATELET VOLUME 9.1 FL (7.4-10.4); MONOCYTES # (AUTO) 0.8 X10'3 (0-0.9); MONOCYTES % (AUTO) 10.3 % (2-12); NEUTROPHILS # (AUTO) 5.2 X10'3 (1.8-7.7); NEUTROPHILS % (AUTO) 69.6 % (42-75); PLATELET COUNT 329 X10'3 (140-440); RED CELL DISTRIBUTION WIDTH 15.6 % (11.5-14.5); WHITE BLOOD COUNT 7.5 X10'3 (4.5-11.0)
[2023-02-21 00:04] LABS: ALANINE AMINOTRANSFERASE 21 U/L (12-78); ALBUMIN 3.6 G/DL (3.4-5.0); ALKALINE PHOSPHATASE 127 IU/L (46-116); ANION GAP 7 (8-16); ASPARTATE AMINO TRANSFERASE 28 U/L (10-37); BILIRUBIN,TOTAL 0.3 MG/DL (0.1-1.0); BLOOD UREA NITROGEN 15 MG/DL (7-18); BUN/CREATININE RATIO 17.4 (10.0-20.0); CALCIUM 8.9 MG/DL (8.5-10.1); CHLORIDE 99 MMOL/L (99-107); CREATININE 0.86 MG/DL (0.40-0.90); GLUCOSE 101 MG/DL (70-104); POTASSIUM 4.1 MMOL/L (3.5-5.1); SODIUM 134 MMOL/L (135-145); TOTAL CARBON DIOXIDE 27.8 MMOL/L (24-32); TOTAL PROTEIN 7.3 G/DL (6.4-8.2); eCRCL 40 ML/MIN; eGFR 63 ML/MIN
[2023-02-21 00:05] LABS: RBC,URINE 0-2 /HPF (0-2); WBC,URINE 0-4 /HPF (0-4)
[2023-02-21 00:12] LABS: PRO BRAIN NATRIURETIC PEPTIDE 1459 PG/ML (0-450)
[2023-02-21 00:17] LABS: BACTERIA,URINE NONE SEEN /HPF (Neg); MUCUS STRANDS NONE SEEN /LPF (Neg); SQUAMOUS EPITHELIAL CELL,UR FEW /LPF (FEW)
[2023-02-21] MEDS ORDERED: metoprolol tartrate 50mg tablet PO ONE (00:30)
--- NOTE | 2023-02-21 00:44 | NUR ---
Patient states her dizziness is better, but still present.
[2023-02-21] MEDS ORDERED: hyDRALAzine 10mg tablet PO SCH (02:05)
[2023-02-21] MEDS ORDERED: nitroGLYCERIN 0.2mg/hour patch TD ONE (02:10)
[2023-02-21 02:30] VITALS: TEMP 98.3
[2023-02-21] MEDS ORDERED: acetaminophen 325mg tablet PO ONE (02:30)
[2023-02-21 03:18] VITALS: RESP 16
[2023-02-21] MEDS ORDERED: hyDRALAzine 10mg tablet PO ONE (03:35)
[2023-02-21 03:36] VITALS: BP_DIAS 93; O2SAT 95
[2023-02-21 03:56] VITALS: BP_SYST 172; PULSE 89
[2023-02-21] MEDS ORDERED: lisinopril 10 MG tablet PO ONE (04:00)
[2023-02-21] MEDS ORDERED: MECL-302 PO (04:05)
== END 2023-02-21 05:06 | disposition home or self-care (01) ==
LOC: ER 21:01
DX: I10 Essential (primary) hypertension (principal)
CPT/HCPCS: 36415; 71045; 80053; 81001; 83880; 84484; 85025; 93005; 99285; J8597

== ENCOUNTER 2023-03-31 14:51 | Inpatient (IN) | payer MEDICARE, OTHER ==
[~2023-03-31] VITALS: Ht 160 cm; Wt 52.3 kg
[~2023-03-31 14:51] MED LIST changes: +MECL-302 PO
[2023-03-31] MEDS ORDERED: iohexol 350MG/ML 100ml bottle IV ONE (15:08)
[2023-03-31 15:42] LABS: BASOPHILS # (AUTO) 0.1 X10'3 (0-0.2); BASOPHILS % (AUTO) 0.9 % (0-1); EOSINOPHILS # (AUTO) 0.1 X10'3 (0-0.9); EOSINOPHILS % (AUTO) 1.2 % (0-6); HEMATOCRIT 32.6 % (35.0-45.0); HEMOGLOBIN 10.6 g/dl (12.0-16.0); LYMPHOCYTES # (AUTO) 1.4 X10'3 (1.1-4.8); LYMPHOCYTES % (AUTO) 24.2 % (21-51); MEAN CORPUSCULAR HEMOGLOBIN 29.7 PG (27.0-31.0); MEAN CORPUSCULAR HGB CONC 32.6 g/dL (33.0-36.5); MEAN CORPUSCULAR VOLUME 91.2 FL (78-98); MEAN PLATELET VOLUME 9.6 FL (7.4-10.4); MONOCYTES # (AUTO) 0.7 X10'3 (0-0.9); MONOCYTES % (AUTO) 12.2 % (2-12); NEUTROPHILS # (AUTO) 3.6 X10'3 (1.8-7.7); NEUTROPHILS % (AUTO) 61.5 % (42-75); PLATELET COUNT 279 X10'3 (140-440); RED BLOOD COUNT 3.58 X10'6 (4.20-5.60); RED CELL DISTRIBUTION WIDTH 15.2 % (11.5-14.5); WHITE BLOOD COUNT 5.8 X10'3 (4.5-11.0)
[2023-03-31] MEDS ORDERED: magnesium Cl slow-release 64mg tablet PO PRN (16:10)
[2023-03-31] MEDS ORDERED: acetaminophen 325mg tablet PO PRN ×2 (16:10)
[2023-03-31] MEDS ORDERED: morphine 2 MG/ML inj. syringe IV PRN (16:10)
[2023-03-31] MEDS ORDERED: magnesium 4gm in 100ml NS 100 ML IV PRN (16:10)
[2023-03-31] MEDS ORDERED: potassium Cl 20 mEq SR tablet PO PRN ×2 (16:10)
[2023-03-31] MEDS ORDERED: normal saline 1000ml 1,000 ML IV SCH (16:10)
[2023-03-31] MEDS ORDERED: mag hydrox/Alum hydrox/simeth 30ml oral suspension PO PRN (16:10)
[2023-03-31] MEDS ORDERED: magnesium 2GM in 50ml NS 50 ML IV PRN (16:10)
[2023-03-31] MEDS ORDERED: ondansetron/PF 4mg/2ml inj IV PRN (16:10)
[2023-03-31] MEDS ORDERED: HYDROcodone/acetaminophen 5mg/325mg tablet PO PRN (16:10)
[2023-03-31] MEDS ORDERED: potassium Cl 40MEQ/1/2NS 520ml 520 ML IV PRN (16:10)
[2023-03-31] MEDS ORDERED: acetaminophen 325mg tablet PO ONE (16:20)
[2023-03-31 16:53] LABS: INR 1.1 INR; PROTHROMBIN TIME 11.6 SECONDS (9.0-12.0)
[2023-03-31 17:20] LABS: APTT 31 SECONDS (22-32)
[2023-03-31 18:06] LABS: ALANINE AMINOTRANSFERASE 14 U/L (12-78); ALBUMIN 3.4 G/DL (3.4-5.0); ALBUMIN/GLOBULIN RATIO 0.9 (1.1-1.5); ALKALINE PHOSPHATASE 138 IU/L (46-116); ANION GAP 9 (8-16); ASPARTATE AMINO TRANSFERASE 24 U/L (10-37); BILIRUBIN,TOTAL 0.4 MG/DL (0.1-1.0); BLOOD UREA NITROGEN 14 MG/DL (7-18); BUN/CREATININE RATIO 18.7 (10.0-20.0); CALCIUM 8.7 MG/DL (8.5-10.1); CHLORIDE 97 MMOL/L (99-107); CREATININE 0.75 MG/DL (0.40-0.90); GLUCOSE 98 MG/DL (70-104); POTASSIUM 4.7 MMOL/L (3.5-5.1); SODIUM 132 MMOL/L (135-145); TOTAL CARBON DIOXIDE 26.1 MMOL/L (24-32); TOTAL PROTEIN 7.1 G/DL (6.4-8.2); eCRCL 46 ML/MIN; eGFR 74 ML/MIN
[2023-03-31] MEDS ORDERED: enoxaparin 40mg/0.4ml syringe SQ SCH (20:00)
[2023-03-31] MEDS ORDERED: IRBE150T34 PO (21:28)
[2023-03-31] MEDS ORDERED: ALPRAZolam 0.5mg tablet PO PRN (23:00)
[2023-03-31] MEDS ORDERED: metoprolol succinate 25mg (24-HOUR) SR. Tablet PO ONE (23:30)
[2023-03-31] MEDS ORDERED: niCARdipine I.V. 50 MG in normal saline 250ml IV soln 230 ML IV SCH (23:35)
[2023-03-31] MEDS ORDERED: niCARDipine-NS 40mg/200ml IVPB 200 ML IV SCH (23:35)
[2023-04-01 03:02] LABS: BILIRUBIN,URINE NEGATIVE (Neg); CLARITY,URINE CLEAR (Clear); COLOR,URINE STRAW (Yellow); GLUCOSE, URINE NEGATIVE (Neg); KETONES,URINE NEGATIVE (Neg); LEUKOCYTE ESTERASE ,URINE NEGATIVE (Neg); NITRITES, URINE NEGATIVE (Neg); OCCULT BLOOD,URINE TRACE-INTACT (Neg); PH,URINE 7.5 (4.8-8.0); PROTEIN,URINE NEGATIVE (Neg); UROBILINOGEN,URINE 0.2 E.U/dL (0.2-1.0)
[2023-04-01 03:03] LABS: UA COLLECTION TYPE NON-SPECIFIED
[2023-04-01 03:05] LABS: URINE AMPHETAMINE SCREEN NEGATIVE (Neg); URINE BARBITUATE SCREEN NEGATIVE (Neg); URINE BENZODIAZEPINES SCREEN NEGATIVE (Neg); URINE CANNABINOID SCREEN NEGATIVE (Neg); URINE COCAINE SCREEN NEGATIVE (Neg); URINE METHADONE SCREEN NEGATIVE (Neg); URINE OPIATE SCREEN NEGATIVE (Neg); URINE PHENCYCLIDINE SCREEN NEGATIVE (Neg)
[2023-04-01 03:30] LABS: BACTERIA,URINE FEW /HPF (Neg); MUCUS STRANDS NONE SEEN /LPF (Neg); RBC,URINE 0-2 /HPF (0-2); SQUAMOUS EPITHELIAL CELL,UR FEW /LPF (FEW); WBC,URINE 0-4 /HPF (0-4)
[2023-04-01 06:09] LABS: BASOPHILS # (AUTO) 0.1 X10'3 (0-0.2); BASOPHILS % (AUTO) 1.1 % (0-1); EOSINOPHILS # (AUTO) 0.1 X10'3 (0-0.9); EOSINOPHILS % (AUTO) 1.5 % (0-6); HEMATOCRIT 29.9 % (35.0-45.0); HEMOGLOBIN 9.8 g/dl (12.0-16.0); LYMPHOCYTES # (AUTO) 1.5 X10'3 (1.1-4.8); LYMPHOCYTES % (AUTO) 30.8 % (21-51); MEAN CORPUSCULAR HEMOGLOBIN 29.5 PG (27.0-31.0); MEAN CORPUSCULAR HGB CONC 32.8 g/dL (33.0-36.5); MEAN PLATELET VOLUME 8.8 FL (7.4-10.4); MONOCYTES # (AUTO) 0.8 X10'3 (0-0.9); MONOCYTES % (AUTO) 16.5 % (2-12); NEUTROPHILS # (AUTO) 2.5 X10'3 (1.8-7.7); NEUTROPHILS % (AUTO) 50.1 % (42-75); PLATELET COUNT 274 X10'3 (140-440); RED BLOOD COUNT 3.32 X10'6 (4.20-5.60); RED CELL DISTRIBUTION WIDTH 15.7 % (11.5-14.5); WHITE BLOOD COUNT 4.9 X10'3 (4.5-11.0)
[2023-04-01 06:30] VITALS: BP 153/75; PULSE 80; RESP 16; TEMP 97.4; O2SAT 97
[2023-04-01 06:34] LABS: PLATELET ESTIMATE NORMAL; TOTAL CELLS COUNTED 100
[2023-04-01 06:36] LABS: LARGE PLATELETS FEW; SMUDGE CELLS FEW
[2023-04-01 06:38] LABS: ALANINE AMINOTRANSFERASE 15 U/L (12-78); ALBUMIN 3.1 G/DL (3.4-5.0); ALBUMIN/GLOBULIN RATIO 0.8 (1.1-1.5); ALKALINE PHOSPHATASE 125 IU/L (46-116); ANION GAP 9 (8-16); ASPARTATE AMINO TRANSFERASE 22 U/L (10-37); BILIRUBIN,TOTAL 0.5 MG/DL (0.1-1.0); BLOOD UREA NITROGEN 11 MG/DL (7-18); BUN/CREATININE RATIO 14.3 (10.0-20.0); CHLORIDE 101 MMOL/L (99-107); CREATININE 0.77 MG/DL (0.40-0.90); GLUCOSE 92 MG/DL (70-104); POTASSIUM 4.1 MMOL/L (3.5-5.1); SODIUM 136 MMOL/L (135-145); TOTAL CARBON DIOXIDE 25.8 MMOL/L (24-32); TOTAL PROTEIN 6.8 G/DL (6.4-8.2); eCRCL 44 ML/MIN; eGFR 71 ML/MIN
[2023-04-01] MEDS ORDERED: levoTHYROXINE 25mcg tablet PO SCH (07:00)
[2023-04-01] MEDS ORDERED: pantoprazole 40mg Tablet.DR PO SCH (08:00)
[2023-04-01] MEDS ORDERED: metoprolol succinate 25mg (24-HOUR) SR. Tablet PO SCH (08:00)
[2023-04-01] MEDS ORDERED: aspirin 81mg, enteric-coated 1 TAB TABLET.DR PO SCH (08:00)
[2023-04-01] MEDS ORDERED: clopidogrel 75mg tablet PO SCH (08:00)
[2023-04-01 09:30] VITALS: BP 129/65
[2023-04-01 10:30] VITALS: BP 111/60; PULSE 89; RESP 16; TEMP 98.2; O2SAT 98
[2023-04-01 12:20] LABS: CHOL/HDL RATIO 1.9 (0.00-4.99); CHOLESTEROL 157 MG/DL (0-200); HDL CHOLESTEROL 81 MG/DL (35-60); LDL CHOLESTEROL 59 MG/DL (50-100); TRIGLYCERIDES 47 MG/DL (20-135)
[2023-04-01 16:00] VITALS: BP 122/72; PULSE 93; RESP 16; TEMP 98.1; O2SAT 97
[2023-04-01] MEDS ORDERED: metoprolol tartrate 50mg tablet PO ONE (18:15)
[2023-04-01] MEDS ORDERED: metoprolol succinate 25mg (24-HOUR) SR. Tablet PO ONE (18:20)
== END 2023-04-01 19:50 | disposition home or self-care (01) | DRG 305 ==
LOC: ER 14:52 → ED HOLD 16:13 → ORTHO 4S 04-01 04:00 → UNDODISIN 04-01 17:45
PROVIDERS: ADMIT Internal Medicine; ATTEND Internal Medicine
PROC: B32T1ZZ Computerized Tomography (CT Scan) of Left Pulmonary Artery using Low Osmolar Contrast (ICD-10-PCS; principal; 2023-03-31)
PROC: B3201ZZ Computerized Tomography (CT Scan) of Thoracic Aorta using Low Osmolar Contrast (ICD-10-PCS; 2023-03-31)
PROC: B32S1ZZ Computerized Tomography (CT Scan) of Right Pulmonary Artery using Low Osmolar Contrast (ICD-10-PCS; 2023-03-31)
PROC: B3251ZZ Computerized Tomography (CT Scan) of Bilateral Common Carotid Arteries using Low Osmolar Contrast (ICD-10-PCS; 2023-03-31)
PROC: B32R1ZZ Computerized Tomography (CT Scan) of Intracranial Arteries using Low Osmolar Contrast (ICD-10-PCS; 2023-03-31)
PROC: B3281ZZ Computerized Tomography (CT Scan) of Bilateral Internal Carotid Arteries using Low Osmolar Contrast (ICD-10-PCS; 2023-03-31)
DX: I16.0 Hypertensive urgency (principal); G45.9 Transient cerebral ischemic attack, unspecified; I48.20 Chronic atrial fibrillation, unspecified; R47.01 Aphasia; H81.10 Benign paroxysmal vertigo, unspecified ear; F32.A Depression, unspecified; F51.04 Psychophysiologic insomnia; I20.9 Angina pectoris, unspecified; M54.50 Low back pain, unspecified; F41.9 Anxiety disorder, unspecified; I10 Essential (primary) hypertension; T50.995A Adverse effect of other drugs, medicaments and biological substances, initial encounter; Z86.73 Personal history of transient ischemic attack (TIA), and cerebral infarction without residual deficits; Z79.01 Long term (current) use of anticoagulants; Z80.51 Family history of malignant neoplasm of kidney; Z82.49 Family history of ischemic heart disease and other diseases of the circulatory system; Z92.3 Personal history of irradiation; Z79.899 Other long term (current) drug therapy; Y92.89 Other specified places as the place of occurrence of the external cause; Z88.1 Allergy status to other antibiotic agents; Z88.8 Allergy status to other drugs, medicaments and biological substances; Z91.018 Allergy to other foods; R29.702 NIHSS score 2
CPT/HCPCS: 36415; 70450; 70496; 70498; 70551; 71045; 80053; 80061; 80305; 81001; 82948; 85007; 85025; 85610; 85730; 86885; 86900; 86901; 87081; 92508; 92616; 93005; 93306; 93880; 97161; 97530; 97535; 99285; G0378; J1650; J2270; J2405; J3490; J7030; Q9967

== ENCOUNTER 2024-06-27 08:34 | Day surgery (SDC) | payer MEDICARE, OTHER ==
[~2024-06-27] VITALS: Ht 154.9 cm; Wt 53.6 kg
[~2024-06-27 08:34] MED LIST changes: -FURO-150 PO; +LABE100T8 PO; -MECL-226 PO; -MECL-302 PO; -METO-395 PO; +VALS320T17 PO
[2024-06-27 09:00] VITALS: BP 164/80; PULSE 90; RESP 12; TEMP 98.6
[2024-06-27] MEDS ORDERED: midazolam 1 mg/ML 2ml injection ONE (10:24)
[2024-06-27] MEDS ORDERED: propofol inj 20 ML IV ONE (10:56)
[2024-06-27 11:16] VITALS: BP 132/64; PULSE 74; RESP 17; O2SAT 98
[2024-06-27 11:21] VITALS: BP 144/73; PULSE 76; RESP 18; O2SAT 97
[2024-06-27 11:31] VITALS: BP 151/73; PULSE 78; RESP 12; O2SAT 97
[2024-06-27 11:41] VITALS: BP 142/73; PULSE 78; RESP 15; O2SAT 98
[2024-06-27 11:46] VITALS: BP 141/64; PULSE 80; RESP 16; O2SAT 97
== END 2024-06-27 11:55 | disposition home or self-care (01) ==
LOC: GI LAB 08:34
PROVIDERS: ATTEND Internal Medicine Gastroenterology
DX: R19.5 Other fecal abnormalities (principal); K64.8 Other hemorrhoids; K57.30 Diverticulosis of large intestine without perforation or abscess without bleeding; D64.9 Anemia, unspecified; K21.9 Gastro-esophageal reflux disease without esophagitis; K29.50 Unspecified chronic gastritis without bleeding; K29.70 Gastritis, unspecified, without bleeding
CPT/HCPCS: 43239; 45378; A4620; J2250; J2704; J7030; Z7512